=== PATIENT | female | born 1960 | race Caucasian/White ===

== ENCOUNTER 2020-07-14 08:55 | Emergency (ER) | payer SELFPAY ==
[~2020-07-14] VITALS: Ht 165.1 cm; Wt 84.8 kg
[2020-07-14] MEDS ORDERED: ONDANSETRON 4 MG TAB.RAPDIS SL ONE (09:30)
[2020-07-14] MEDS ORDERED: KETOROLAC TROMETHAMINE INJ 30 MG/ML VIAL IM ONE (09:30)
[2020-07-14] MEDS ORDERED: HYDROCODONE/APAP 5/325MG TABLET ONE (09:30)
[2020-07-14] MEDS ORDERED: KETOROLAC TROMETHAMINE 15 MG/ML VIAL ONE (09:30)
[2020-07-14] MEDS ORDERED: HYDROCODONE/APAP 5/325MG TABLET PO ONE (09:30)
[2020-07-14] MEDS ORDERED: ONDANSETRON 4 MG TAB.RAPDIS ONE (09:31)
[2020-07-14] MEDS ORDERED: HYDR-4303 PO (10:40)
--- NOTE | 2020-07-14 11:21 | NUR ---
Patient assisted to the car via wheelchair. Patient discharged to home in stable condition. Written and verbal after care instructions given. Patient verbalizes understanding of instruction.
[2020-07-14 11:22] VITALS: BP 135/76
== END 2020-07-14 11:22 | disposition home or self-care (01) ==
LOC: ER 08:58
DX: M54.42 Lumbago with sciatica, left side (principal); M25.552 Pain in left hip; Z85.79 Personal history of other malignant neoplasms of lymphoid, hematopoietic and related tissues; Z79.899 Other long term (current) drug therapy
CPT/HCPCS: 72100; 73503; 96372; 99284; J1885; Q0162; 73502

== ENCOUNTER 2021-11-27 05:17 | Emergency (ER) | payer MEDICAID, OTHER ==
[~2021-11-27] VITALS: Ht 162.6 cm; Wt 80.7 kg
[~2021-11-27 05:17] MED LIST: HYDR-4303 PO
--- NOTE | 2021-11-27 05:41 | NUR ---
TO ER BED 1. [id number]. FROM HOME C/O HEADACHE AND L SHOULDER PAIN X 1700. PT IS ALERT AND ORIENTED. RR EVEN AND NON LABORED. CONNECTED TO MONITOR. AWAITING MD GUARDADO
[2021-11-27 06:21] LABS: BASOPHILS % (AUTO) 0.2 % (0.0-2.0); EOSINOPHILS % (AUTO) 1.7 % (0.0-6.0); HEMATOCRIT 44 % (33-45); HEMOGLOBIN 14.5 g/dL (11.5-14.8); LYMPHOCYTES # (AUTO) 1.8 K/uL (0.8-4.8); LYMPHOCYTES % (AUTO) 28.2 % (20.0-44.0); MEAN CORPUSCULAR HGB CONC 33 g/dl (31.0-36.0); MEAN CORPUSCULAR VOLUME 96 fL (82-100); MONOCYTES # (AUTO) 0.8 K/uL (0.1-1.30); MONOCYTES % (AUTO) 12.4 % (2.0-12.0); NEUTROPHILS # (AUTO) 3.6 K/uL (1.8-8.9); NEUTROPHILS % (AUTO) 57.5 % (43.0-81.0); PLATELET COUNT (AUTO) 154 K/uL (150-450); RED BLOOD CELL COUNT(AUTO) 4.54 MIL/uL (4.0-5.2); WHITE BLOOD COUNT (AUTO) 6.3 K/uL (4.3-11.0)
[2021-11-27] MEDS ORDERED: KETOROLAC TROMETHAMINE INJ 60 MG/2 ML VIAL IM ONE ×2 (06:22→06:30)
[2021-11-27 06:40] LABS: CALCIUM, SERUM 9.5 mg/dL (8.5-10.1); CREATININE 1.4 mg/dL (0.6-1.3); POTASSIUM 3.5 mmol/L (3.5-5.1)
--- NOTE | 2021-11-27 07:50 | NUR ---
AWAKE AND VERVALLY RESPONSIVE; ABLE TO AMBULATE TO BATHROOM W/ STEADY GAIT.
--- NOTE | 2021-11-27 08:40 | NUR ---
SPOKE W/ NICKIE FROM RADIOLOGY; WILL FOLLOW-UP W/ RADIOLOGIST FOR CT SCAN RESULT
--- NOTE | 2021-11-27 09:32 | NUR ---
DAUGHTER WILL HOISTMAN IN 40MINS
--- NOTE | 2021-11-27 10:20 | NUR ---
Patient discharged to home in stable condition. Written and verbal after care instructions given. Patient verbalizes understanding of instruction.
[2021-11-27 10:22] VITALS: BP 139/82
== END 2021-11-27 10:22 | disposition home or self-care (01) ==
LOC: ER 05:19
DX: R51.9 Headache, unspecified (principal); I10 Essential (primary) hypertension; Z79.899 Other long term (current) drug therapy
CPT/HCPCS: 99284; 70450; 96372; 85025; 80048; 36415; J1885